=== PATIENT | female | born 1980 | race Hispanic/Latino ===

== ENCOUNTER 2021-09-27 06:58 | Emergency (ER) | payer OTHER ==
--- OUTSIDE RECORDS SUMMARY | 2021-09-27 07:00 | XMS REPORT | Continuity of Care Document ---
:1980 Author Organization [facility] t Address [address] [place] [address] Care Team Providers Name Role Phone Harley Shafer Attending Clinician Payers Payer Name Policy Type Policy Number Effective Date Expiration Date S ource Problems This patient has no known problems. Allergies, Adverse Reactions, Alerts This patient has no known allergies or adverse reactions. Social History Social Habit Start Date Stop Date Quantity Comments Source Sex Assigned At [birth year] [facility] 00:00:00 00:00:00 [facility] Smoking Status Start Date Stop Date Source Unknown if ever smoked [facility] Medications This patient has no known medications. Procedures This patient has no known procedures. Encounters Start End Encounter Admission Attending Care Care Encounter Source Date/Time Date/Time Type Type Clinicians Facility Department ID 2021-09-25 2021-09-25 Telephone [facility] [id number] Univers 00:00:00 00:00:00 Giulia Souza NETWORK ASSOCIATE [id number] it y of REGIONAL [id number] Vick as MATERNAL [id number] Med ical & CHILD [address] [place] [address] Results This patient has no known results.
[2021-09-27] MEDS ORDERED: ACETAMINOPHEN 500 MG TAB ONE (07:48)
[2021-09-27] MEDS ORDERED: NA CHLORIDE 0.9% 500 ML ONE (07:49)
[2021-09-27] MEDS ORDERED: DICYCLOMINE HCL 10 MG CAP ONE (07:49)
[2021-09-27 07:59] LABS: Absolute Lymphocytes (CBC) 1.8 K/uL (0.7-4.9); Basophils % 0.3 % (0-1.3); Hematocrit 41.7 % (36.0-45.0); Lymphocytes % 19.4 % (15.3-44.8); MPV 8.4 fL (7.6-11.3); RBC Red Blood Cell Count 4.41 M/uL (3.86-4.86)
[2021-09-27 08:26] LABS: BUN Blood Urea Nitrogen 20 mg/dL (7-18); Bicarbonate 23 mmol/L (21-32); Glucose Level 109 mg/dL (74-106); HCG, Quantitative 3775 mIU/mL (1-3); Potassium 3.7 mmol/L (3.5-5.1); Sodium Level 141 mmol/L (136-145)
[2021-09-27 09:04] LABS: Urine Blood 3+ (Negative); Urine Glucose Negative (Negative); Urine Protein Negative (Negative)
[2021-09-27 09:58] LABS: Urine Bacteria <20 /HPF (<20); Urine RBC <5 /HPF (NONE SEEN)
--- NOTE | 2021-09-27 10:47 | ER ---
Nurse's Notes [facility] Name: Colleen Titus Age: 40 yrs Sex: Female : 1980 Arrival Date: 09/27/2021 Time: 06:59 Bed 15 Private MD: Diagnosis: Threatened Presentation: 09/27 07:15 Chief complaint: Patient states: Pt reports she is nine weeks and began having ss vaginal spotting 3 days ago, but this morning became much worse. Coronavirus screen: Client denies travel out of the [place] in the last 14 days. Ebola Screen: Patient denies exposure to infectious person. Patient denies travel to an Ebola-affected area in the 21 days before illness onset. Initial Sepsis Screen: Does the patient meet any 2 criteria? No. Patient's initial sepsis screen is negative. Does the patient have a suspected source of infection? No. Patient's initial sepsis screen is negative. Risk Assessment: Do you want to hurt yourself or someone else? Patient reports no desire to harm self or others. Onset of symptoms was September 24, 2021. 07:15 Method Of Arrival: Ambulatory ss 07:15 Acuity: MARISEL 3 ss Triage Assessment: 11:02 General: Behavior is calm, cooperative. 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 - Social history:: Smoking status: Patient denies any tobacco usage or history of. Screenin:57 Abuse screen: Denies threats or abuse. Nutritional screening: No deficits noted. vg1 Tuberculosis screening: No symptoms or risk factors identified. Fall Risk No fall in past 12 months (0 pts). No secondary diagnosis (0 pts). IV access (20 points). Ambulatory Aid- None/Bed Rest/Nurse Assist (0 pts). Gait- Normal/Bed Rest/Wheelchair (0 pts) Mental Status- Oriented to own ability (0 pts). Total Deras Fall Scale indicates No Risk (0-24 pts). Assessment: 07:30 General: Appears in no apparent distress. uncomfortable. Pain: Complains of pain in vg1 suprapubic area Pain currently is 5 out of 10 on a pain scale. at worst was 9 out of 10 on a pain scale. Pain began 2-3 days ago. Neuro: Level of Consciousness is awake, alert, obeys commands, Oriented to person, place, time, situation. Cardiovascular: Patient's skin is warm and dry. Respiratory: Airway is patent Respiratory effort is even, unlabored. GI: Abdomen is round non-distended, Patient currently denies diarrhea, nausea, vomiting. : Reports vaginal bleeding that is bright red, with clots, heavy flow since States bleeding began on Thursday and was brown in color. Contacted womens clinic in [place] and was told 'that was normal'. States yesterday noticed blood with small clots. States today has a heavy bright red flow with pain and cramps. EENT: No signs and/or symptoms were reported regarding the EENT system. Derm: Skin is intact, is healthy with good turgor. Musculoskeletal: Circulation, motion, and sensation intact. 08:56 Reassessment: Patient appears in no apparent distress at this time. Patient and/or vg1 family updated on plan of care and expected duration. Pain level reassessed. Patient is alert, oriented x 3, equal unlabored respirations, skin warm/dry/pink. Rated pain as 3/10. 10:00 Reassessment: Patient appears in no apparent distress at this time. Patient and/or vg1 family updated on plan of care and expected duration. Pain level reassessed. Patient is alert, oriented x 3, equal unlabored respirations, skin warm/dry/pink. Patient denies pain at this time. 11:01 Reassessment: Patient appears in no apparent distress at this time. Patient and/or vg1 family updated on plan of care and expected duration. Pain level reassessed. Patient is alert, oriented x 3, equal unlabored respirations, skin warm/dry/pink. Patient states feeling better. Vital Signs: 07:15 BP 128 / 83; Pulse 91; Resp 16; Temp 98.0(TE); Pulse Ox 100% on R/A; Weight 81.65 kg; Height 5 ft. 4 in. (162.56 cm); 07:30 BP 119 / 89; Pulse 94; Resp 16; Pulse Ox 99% ; vg1 08:57 BP 98 / 70; Pulse 70; Resp 16; Pulse Ox 100% ; vg1 09:59 BP 110 / 71; Pulse 68; Resp 14; Pulse Ox 100% ; vg1 11:01 BP 98 / 64; Pulse 72; Resp 14; Pulse Ox 100% ; vg1 07:15 Body Mass Index 30.90 (81.65 kg, 162.56 cm) ED Course: 06:59 Patient arrived in ED. as 07:17 Triage completed. 07:17 Arm band placed on right wrist. 07:18 Iban Benton PA is PHCP. 07:18 Agustin Munoz MD is Attending Physician. cp 07:20 Malorie Cameron RN is Primary Nurse. vg1 07:40 Initial lab(s) drawn, by mn, sent to lab. Inserted saline lock: 20 gauge in right vg1 antecubital area, using aseptic technique. Blood collected. 07:57 Patient has correct armband on for positive identification. Placed in gown. Bed in low vg1 position. Call light in reach. Side rails up X 1. Adult w/ patient. Warm blanket given. 08:48 Transvaginal Ob In Process Unspecified. EDMS 09:04 Abo/rh Typing Sent. mh5 09:04 Basic Metabolic Panel Sent. mh5 09:05 Pulse ox on. NIBP on. 5 09:05 Urine collected: clean catch specimen, clear. mh5 10:04 Assist provider with pelvic exam: Set up pelvic tray. Performed by Iban PEREZ mh5 Patient tolerated well. 11:02 IV discontinued, intact, bleeding controlled, No redness/swelling at site. Pressure vg1 dressing applied. Administered Medications: 08:02 Drug: Bentyl (dicyclomine) 20 mg Route: PO; vg1 08:56 Follow up: Response: Pain is decreased vg1 08:02 Drug: NS 0.9% 500 ml Route: IV; Rate: bolus; Site: right antecubital; vg1 08:56 Follow up: IV Status: Completed infusion; IV Intake: 500ml vg1 08:02 Drug: Tylenol 1000 mg Route: PO; vg1 08:56 Follow up: Response: Pain is decreased vg1 Intake: 08:56 IV: 500ml; Total: 500ml. vg1 Outcome: 10:47 Discharge ordered by . dasha 11:01 Discharged to home ambulatory, with family. vg1 11:01 Condition: stable 11:01 Discharge instructions given to patient, Instructed on discharge instructions, follow up and referral plans. medication usage, Demonstrated understanding of instructions, follow-up care, medications, Prescriptions given X 1. 11:02 Patient left the ED. vg1 Signatures: Dispatcher [employer] Anamika Chen Shelby, RN RN Iban Avilez PA PA cp Martinez, [facility] Malorie Cameron, RN RN vg1
--- NOTE | 2021-09-27 10:48 | EDPHYS ---
Physician Documentation [facility] Name: Colleen Titus Age: 40 yrs Sex: Female : 1980 Arrival Date: 09/27/2021 Time: 06:59 Bed 15 Private MD: ED Physician Agustin Munoz HPI: 09/27 07:30 This 40 yrs old Female presents to ER via Ambulatory with complaints of Pelvic cp Pain - 9 wks preg. 07:30 The patient presents to the emergency department with vaginal bleeding, with clots. cp course: care: at a clinic, Leakage of Fluid: none appreciated, Ultrasound: the patient has not had an ultrasound. 07:30 Associated signs and symptoms: Pertinent positives: vaginal bleeding, lower abdominal cp cramps, Pertinent negatives: chest pain, dysuria, fever, vomiting. Patient reports she noticed some spotting 3 days ago. Now having increased vaginal bleeding, abdominal cramping since this morning. Noticed passage of several clots. Patient reports she is approximately 9 weeks gestation. 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 - Social history:: Smoking status: Patient denies any tobacco usage or history of. ROS: 07:31 Constitutional: Negative for body aches, chills, fever. cp 07:31 Respiratory: Negative for cough, shortness of breath, wheezing. 07:31 Abdomen/GI: Positive for abdominal cramps, Negative for vomiting, diarrhea, constipation. 07:31 : Positive for hematuria, vaginal bleeding. 07:31 Cardiovascular: Negative for chest pain, palpitations. cp 07:31 Back: Negative for radiated pain. 07:31 Neuro: Negative for altered mental status, dizziness, syncope, weakness. 07:31 All other systems are negative. Exam: 07:35 Constitutional: The patient appears in no acute distress, alert, awake, comfortable, cp non-toxic, well developed, well nourished. 07:35 Head/Face: Normocephalic, atraumatic. cp 07:35 Eyes: Periorbital structures: appear normal, Conjunctiva: normal, no exudate, no cp injection, Sclera: no appreciated abnormality, Lids and lashes: appear normal, bilaterally. 07:35 ENT: External ear(s): are unremarkable, Nose: is normal, Posterior pharynx: Airway: no evidence of obstruction, patent. 07:35 Chest/axilla: Inspection: normal. cp 07:35 Cardiovascular: Rate: normal, Rhythm: regular. 07:35 Respiratory: the patient does not display signs of respiratory distress, Respirations: normal, no use of accessory muscles, no retractions. 07:35 Abdomen/GI: Inspection: abdomen appears normal, Palpation: soft, in all quadrants, mild abdominal tenderness, in the suprapubic area, right lower quadrant and left lower quadrant, rebound tenderness, is not appreciated, involuntary guarding, is not appreciated. 07:35 Back: CVA tenderness, is absent. 07:35 Neuro: Orientation: to person, place \T\ time. Mentation: is normal, Motor: moves all fours, strength is normal. 10:00 : Pelvic Exam: External exam: is normal, Speculum exam: mild bleeding, blood clots in cp vaginal vault, no cervicitis, os that is open, no tissue in cervix is seen, no tissue in vagina is seen, the dye lab technician was present for the exam. Vital Signs: 07:15 BP 128 / 83; Pulse 91; Resp 16; Temp 98.0(TE); Pulse Ox 100% on R/A; Weight 81.65 kg; ss Height 5 ft. 4 in. (162.56 cm); 07:30 BP 119 / 89; Pulse 94; Resp 16; Pulse Ox 99% ; vg1 08:57 BP 98 / 70; Pulse 70; Resp 16; Pulse Ox 100% ; vg1 09:59 BP 110 / 71; Pulse 68; Resp 14; Pulse Ox 100% ; vg1 11:01 BP 98 / 64; Pulse 72; Resp 14; Pulse Ox 100% ; vg1 07:15 Body Mass Index 30.90 (81.65 kg, 162.56 cm) MDM: 07:24 Patient medically screened. 10:45 Data reviewed: vital signs, nurses notes, lab test result(s), radiologic studies, cp ultrasound. 10:45 Counseling: I had a detailed discussion with the patient and/or guardian regarding: the cp historical points, exam findings, and any diagnostic results supporting the discharge/admit diagnosis, lab results, radiology results, the need for outpatient follow up, for definitive care, an OB/Gyne specialist, to return to the emergency department if symptoms worsen or persist or if there are any questions or concerns that arise at home. ED course: VSS. Discussed results of labs and US indicating that gestational age is possibly earlier than calculated or inevitable miscarriage. Pain improved and vaginal bleeding improved. Recommend repeat beta-hcg 48 hours, pelvic rest. Will discharge to home for continued monitoring. 09/27 07:19 Order name: Abo/rh Typing 09/27 07:19 Order name: Basic Metabolic Panel 09/27 07:19 Order name: CBC with Diff; Complete Time: 08:12 09/27 08:12 Interpretation: Reviewed. 09/27 07:19 Order name: Quantitative Hcg; Complete Time: 08:48 09/27 08:48 Interpretation: HCGQ 3775; Reviewed. 09/27 07:19 Order name: ABO/RH typing; Complete Time: 08:12 EDMS 09/27 08:13 Interpretation: Reviewed. 09/27 07:19 Order name: Basic Metabolic Panel; Complete Time: 08:48 EDMS 09/27 08:48 Interpretation: Normal except: CL 109; GLUC 109; BUN 20. 09/27 07:19 Order name: IV Saline Lock; Complete Time: 07:51 09/27 07:37 Order name: US Transvaginal Ob; Complete Time: 11:01 09/27 09:04 Order name: Urine Dipstick-Ancillary; Complete Time: 09:12 EDMS 09/27 09:12 Interpretation: Normal except: UBLD 3+. 09/27 09:11 Order name: Urine --Ancillary (enter results); Complete Time: 09:30 em1 09/27 10:21 Interpretation: Reviewed. 09/27 09:13 Order name: Urine Microscopic Only; Complete Time: 10:21 09/27 10:21 Interpretation: Reviewed. cp 09/27 07:19 Order name: Labs collected and sent; Complete Time: 07:51 cp 09/27 07:19 Order name: NPO; Complete Time: 07:21 cp 09/27 07:19 Order name: Urine Dipstick-Ancillary (obtain specimen); Complete Time: 09:04 cp 09/27 07:19 Order name: Urine Test (obtain specimen); Complete Time: 09:04 cp 09/27 09:30 Order name: Pelvic Exam Setup; Complete Time: 09:48 cp Administered Medications: 08:02 Drug: Bentyl (dicyclomine) 20 mg Route: PO; vg1 08:56 Follow up: Response: Pain is decreased vg1 08:02 Drug: NS 0.9% 500 ml Route: IV; Rate: bolus; Site: right antecubital; vg1 08:56 Follow up: IV Status: Completed infusion; IV Intake: 500ml vg1 08:02 Drug: Tylenol 1000 mg Route: PO; vg1 08:56 Follow up: Response: Pain is decreased vg1 Disposition: 11:00 Chart complete. cp 17:20 Co-signature as Attending Physician, Agustin Munoz MD I agree with the assessment and kdr plan of care. Disposition Summary: 09/27/21 10:47 Discharge Ordered Location: Home cp Problem: new cp Symptoms: are unchanged cp Condition: Stable cp Diagnosis - Threatened cp Followup: cp - With: Private Physician - When: 48 Hours - Reason: Repeat Beta-HCG (48 Hours) Discharge Instructions: - Discharge Summary Sheet cp - Care cp - Threatened Miscarriage cp - Vaginal Bleeding During , First Trimester cp - Activity Restriction During cp Forms: - Medication Reconciliation Form cp - Thank You Letter cp - Antibiotic Education cp - Prescription Opioid Use cp Prescriptions: - Plus 29 mg iron- 1 mg Oral tablet - take 1 tablet by ORAL route once daily with a meal; 60 tablet; Refills: 0, cp Product Selection Permitted Signatures: Dispatcher [employer] Agustin Chery MD MD [facility] Stacy Wharton RN RN Iban Avilez PA PA cp Garcia, Victoria, RN RN vg1
--- NOTE | 2021-09-27 10:58 | RAD REPORT ---
EXAM DESCRIPTION: US - Transvaginal OB - 09/27/2021 8:48 am CLINICAL HISTORY: with vaginal bleeding COMPARISON: None. FINDINGS: The uterus measures 10 x 5 x 6 centimeters. A sac is present within the endometrium measu ring 2.1 centimeters. The sac lies within the uterine body. A pole is not seen. Left ovary normal in size and echotexture. A right ovary not seen secondary overlying bowel gas. The right and left adnexa unremarkable No significant free fluid IMPRESSION: Intrauterine with an estimated gestational age 7 weeks 0 days. A pole wa s not seen and the gestational sac is somewhat low lying which indicates that this most likely repres ents a failed /incomplete . Much less likely is that this is viable in whi ch the pole is not seen secondary to a combination of early gestational age and technical facto rs. Followup endovaginal sonogram and serial beta HCG levels would be helpful
[2021-09-27 11:07] VITALS: TEMP 98
[2021-09-27 11:09] VITALS: O2SAT 100
[2021-09-27 11:12] VITALS: BP 98/64
== END 2021-09-27 11:02 | disposition home or self-care (01) ==
LOC: ER 06:58
DX: O20.0 Threatened abortion (principal)
CPT/HCPCS: 85025; 80048; 36415; 86900; 81025; 86901; 84702; 76817; 96360; 99284; J7040; 81003; 81015